=== PATIENT | male | born 1980 | race Asian ===

== ENCOUNTER 2016-12-24 11:31 | Emergency (ER) | payer OTHER ==
[2016-12-24 11:47] LABS: EOSINOPHIL (%) 1.4 % (0-5); EOSINOPHIL COUNT 0.1 K/uL (0-0.3); HEMATOCRIT 45.9 % (38.0-50.0); IMMATURE GRANULOCYTE (%) 0.5 % (0.0-0.7); IMMATURE GRANULOCYTE COUNT 0.1 K/uL; INSTRUMENT ABS NEUTROPHIL CT 6.7 K/uL; LYMPHOCYTE COUNT 1.9 K/uL (1.0-2.8); MCH 28.5 PG (29.0-34.0); MCHC 32.9 G/DL (30.0-36.0); MCV 86.6 FL (86-99); MEAN PLAT.VOLUME 8.9 uM^3 (9.0-12.4); MONOCYTE COUNT 0.9 K/uL (0-0.8); NEUTROPHIL (%) 69.5 % (45-76); NEUTROPHIL COUNT 6.7 K/uL (1.8-6.4); PLATELET COUNT 273 K/uL (156-360); RBC DIS.WIDTH-CV 11.9 % (11.8-14.6); RBC DIS.WIDTH-SD 37.7 % (39-53); WHITE BLOOD COUNT 9.6 K/uL (4.1-10.2)
[2016-12-24 11:56] LABS: AMYLASE 80 IU/L (1-118); CHLORIDE 103 mEq/L (99-109); POTASSIUM 4.1 mEq/L (3.7-5.4); SODIUM 137 mEq/L (136-147)
[2016-12-24 11:57] LABS: GLUCOSE 107 mg/dL (70-99)
[2016-12-24 11:59] LABS: ANION GAP 10 MEQ/L (2-14)
[2016-12-24 12:01] LABS: SERUM ETHYL ALCOHOL < 10 mg/dL
[2016-12-24 12:02] LABS: UREA NITROGEN (BUN) 18 mg/dL (9-23)
[2016-12-24 12:03] LABS: GFR ESTIMATE (CALCULATED) > 59 mL/min/
[2016-12-24 12:04] LABS: LIPASE 17 U/L (1.0-51.0)
[2016-12-24 14:53] LABS: ADD MIUA? NO; BILIRUBIN NEGATIVE; BLOOD NEGATIVE; COLOR STRAW ((YELLOW)); GLUCOSE (STRIP) NEGATIVE; KETONES NEGATIVE; LEUKOCYTES NEGATIVE; NITRITE NEGATIVE; PROTEIN (STRIP) NEGATIVE; SPECIFIC GRAVITY 1.008 (1.000-1.030); UCUL ADDED? NO; UROBILINOGEN 0.2 MG/DL (0.2-1.0)
[2016-12-24] MEDS ORDERED: PERCOCET 5/31 TABLET PO (14:58)
[2016-12-24 15:10] LABS: AMPHETAMINE NEGATIVE (500 ng/mL); BARBITURATES NEGATIVE (200 ng/mL); BENZODIAZEPINES NEGATIVE (150 ng/mL); COCAINE NEGATIVE (150 ng/mL); INTERNAL CONTROLS VALID? YES; METHADONE NEGATIVE (200 ng/mL); METHAMPHETAMINE NEGATIVE (500 ng/mL); OPIATES (MORPHINE) NEGATIVE (100 ng/mL); OXYCODONE NEGATIVE (100 ng/mL); PHENCYCLIDINE NEGATIVE (25 ng/mL); PROPOXYPHENE NEGATIVE (300 ng/mL); THC CANNABINOIDS NEGATIVE (50 ng/mL); TRICYCLIC ANTIDEPRESSANTS NEGATIVE (300 ng/mL)
== END 2016-12-24 16:07 | disposition home or self-care (01) ==
LOC: TRA 11:31
PROVIDERS: Emergency Medicine
PROC: 3E0234Z Introduction of Serum, Toxoid and Vaccine into Muscle, Percutaneous Approach (ICD-10-PCS; principal; 2016-12-24)
DX: S80.02XA Contusion of left knee, initial encounter (principal); S80.01XA Contusion of right knee, initial encounter; V68.5XXA Driver of heavy transport vehicle injured in noncollision transport accident in traffic accident, initial encounter; Z23 Encounter for immunization
CPT/HCPCS: 70450; 70486; 71010; 72125; 72170; 73560; 80048; 81003; 82150; 83690; 85025; 86900; 86901; 90832; 99281; 99285; G0480